=== PATIENT | female | born 1985 | race Caucasian/White ===

== ENCOUNTER 2021-03-04 15:31 | Emergency (ER) | payer OTHER, SELFPAY ==
--- NOTE | ~2021-03-04 | US_ITS ---
EXAMINATION: US pelvic complete EXAM DATE: 03/04/2021 20:21 INDICATION: Pelvic pain. TECHNIQUE: Pelvic transabdominal and transvaginal sonogram was performed. There are multiple graysca le and Doppler images available for interpretation. There is no prior study for comparison. FINDINGS: Uterus measures 10.5 x 7.0 x 5.5 cm, and is morphologically normal. There is small amount of endometrial canal fluid. Endometrium measures 7 mm in thickness at the fundus, normal. There is no free pelvic fluid. Right adnexa: The ovary measures 3.1 x 3.0 x 2.0 cm and is morphologically normal. Ovarian vascular f low confirmed. Left adnexa: The ovary measures 2.6 x 2.0 x 2.4 cm and is morphologically normal. Ovarian vascular fl ow confirmed. IMPRESSION: Unremarkable pelvic ultrasound exam. Reviewed, dictated and finalized at location A. [employer]
[2021-03-04 15:42] VITALS: BP 146/104; PULSE 118; RESP 18; TEMP 36.2; O2SAT 100
[2021-03-04 17:42] VITALS: BP 139/102; PULSE 110; RESP 16; O2SAT 99
[2021-03-04 18:54] LABS: Add Urine Microscopic? YES; Appearance Urine Cloudy (Clear); Bacteria Urine Trace /hpf; Bilirubin Urine Negative (Negative); Blood Urine 1+ (Negative); Color Urine Yellow (Yellow); Glucose Urine UA Negative (Negative); Ketones Urine Negative (Negative); Leukocyte Esterase Ur Negative LEU/UL (Negative); Mucus Urine Rare /lpf; Nitrate Urine Negative (Negative); Protein Urine Negative (Negative); Specific Grav Ur 1.011 (1.001-1.035); Squamous Epithelial Cell Urine Many /hpf (Few); Urobilinogen Urine Negative mg/dL (<2.0); WBC Urine 0-3 /hpf
--- NOTE | 2021-03-04 19:04 | ED.GENADULT ---
HPI - General Adult General Chief complaint: Urogenital-Female Stated complaint: UTERINE MASS, LEG PAIN X3D Time Seen by Provider: 03/04/21 17:26 Source: patient Mode of arrival: ambulatory Limitations: no limitations History of Present Illness HPI narrative: Pt presents for evaluation and treatment of abdominal pain for the past three days. Pain is intermittent and shoots into her back and right shoulder. Pain has been constant, sharp, throbbing, 9 out of 10 in severity. 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 She was undergoing work-up per rheumatology and dermatology at [place]. She was told that there was nothing more that either specialty could do for her. 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 She was on lovenox for some time. She is no longer anticoagulated. She states she went to an unknown hospital within the last year and had an incidental finding of a fibroid in her uterus and CTA of the chest was performed to rule out PE. She went to [facility] on 02/17/21 for abdominal pain. She had a CT scan of her abdomen/pelvis performed at that time and there was a finding of a lipoma, which fits in history with her reported bumps . She will follow-up appointment with Dr. Simeon on 02/19/21 for dysfunctional uterine bleeding. He spoke with her about potentially having an uterine ablation or hysterectomy for what sounds to be fibroids. She ordered an ultrasound but she indicates that she was told they could not perform ultrasound until next year. She came into the pain indicating she cannot wait that long. She reports some subjective fever and chills. She has experienced nausea without vomiting. No urinary symptoms. No vaginal bleeding or discharge. Last menstrual period was sometime at the end of last month. Related Data Home Medications Medication Instructions Recorded Confirmed clonazepam 0.5 mg PO BID 03/04/21 Allergies Allergy/AdvReac Type Severity Reaction Status Date / Time ceftriaxone [From Rocephin] Allergy Hives Verified 03/04/21 17:40 penicillin G Allergy Anaphylaxis Verified 03/04/21 17:40 vancomycin Allergy Rash Verified 03/04/21 17:40 cyclobenzaprine AdvReac Agitated Verified 03/04/21 17:40 [From Flexeril] ketorolac [From Toradol] AdvReac Agitated Verified 03/04/21 17:40 metoclopramide [From Reglan] AdvReac Agitated Verified 03/04/21 17:40 promethazine [From Phenergan] AdvReac Agitated Verified 03/04/21 17:40 Review of Systems Review of Systems: CONSTITUTIONAL:Reports subjective fever and chills EYES: Denies visual changes, redness, or discharge. ENT: Denies rhinorrhea, congestion, sore throat, or otalgia. CARDIOVASCULAR: Denies chest pain, palpitations, or edema. RESPIRATORY: Denies cough or dyspnea. GASTROINTESTINAL: Reports abdominal pain, nausea without vomiting GENITOURINARY: Denies dysuria or hematuria. SKIN: Denies rash or itching. MUSCULOSKELETAL: Reports back pain and right shoulder pain NEUROLOGIC: Denies headache, numbness, dizziness, or weakness. PSYCHIATRIC: Denies anxiety or depression. [facility] Past Medical History Medical History (Updated 03/04/21 @ 21:52 by ARIANNE Quiñonez, ) Fibroid History of ectopic Lipoma Surgical History Surgical History History of appendectomy History of cholecystectomy Family History Family History Mother No pertinent past medical history Social History Social History Alcohol intake: never Substance use type: marijuana Living arrangements: with family Gender identity (if verbalized by the patient): Female Sexual Or
[2021-03-04 19:13] LABS: Basophils Absolute Auto 0.1 K/mm3 (0.0-0.1); Basophils Percent Auto 0.4 % (0.2-1.2); Eosinophils Absolute Auto 0.3 K/mm3 (0-0.3); Eosinophils Percent Auto 1.9 % (0-4.4); Hematocrit 40.8 % (37.0-47.0); Hemoglobin 12.4 g/dL (12.0-15.0); Immature Granulocyte Absolute 0.06 K/mm3 (0.00-0.031); Immature Granulocyte Percent A 0.4 % (0-0.5); Lymphocytes Absolute Auto 4.16 K/mm3 (0.9-3.2); Lymphocytes Percent Auto 28.6 % (18.3-44.2); Mean Corpuscular HGB Conc 30.4 g/dl (32-36); Mean Corpuscular Hemoglobin 23.7 pg (26-34); Mean Platelet Volume 10.4 fl (7.4-10.4); Monocytes Absolute Auto 0.6 K/mm3 (0.1-0.6); Monocytes Percent Auto 4.4 % (2.6-8.5); Neutrophils Absolute Auto 9.3 K/mm3 (1.3-6.7); Neutrophils Percent Auto 64.3 % (45.5-73.1); Platelet Count Result 359 k/mm3 (150-375); Red Blood Count 5.23 M/mm3 (4.2-5.4); Red Cell Distribution Width 15.5 % (11.5-14.5); White Blood Count 14.5 K/mm3 (4.5-10.0)
[2021-03-04] MEDS: HYDROcodone/acetaminophen (*CRX) 5-325 MG TABLET 1 TAB PO (19:16)
[2021-03-04] MEDS: ONDANSETRON INJ 4 MG/2 ML VIAL IV PUSH (19:16)
[2021-03-04 19:23] LABS: Alanine Aminotransferase 27 U/L (4-35); Albumin Level 4.6 g/dL (3.5-5.1); Alkaline Phosphatase 95 U/L (38-126); Anion Gap 14 mmol/L (8-16); Aspartate Amino Transferase 30 U/L (14-36); Bilirubin,Total 0.4 mg/dL (0.2-1.3); Blood Urea Nitrogen 7 mg/dL (7-17); Carbon Dioxide 19 mmol/L (22-30); Chloride 108 mmol/L (98-107); Estimated CRCL calculation 159 ml/min; Estimated Glomerular Filt Rate > 60; Glucose 123 mg/dL (65-110); Lipase 45 U/L (23-300); Potassium 3.7 mmol/L (3.4-5.0); Sodium 141 mmol/L (137-145)
[2021-03-04 20:11] VITALS: BP 131/98; PULSE 96; RESP 18; O2SAT 97
[2021-03-04] MEDS: oxyCODONE/ACETAMINOPHEN (*CRX) 5-325 MG TABLET 1 TABLET PO (20:30)
[2021-03-04 22:00] VITALS: BP 139/98; PULSE 98; RESP 20; TEMP 36.7; O2SAT 100
== END 2021-03-05 00:03 | disposition home or self-care (01) ==
PROVIDERS: Emergency Provider Nurse Practitioner
DX: R10.31 Right lower quadrant pain (principal); D68.2 Hereditary deficiency of other clotting factors; Z86.718 Personal history of other venous thrombosis and embolism
CPT/HCPCS: 36415; 76856; 80053; 81001; 81025; 83690; 85025; 87070; 87491; 87591; 87808; 96374; 99284; A9270; J2405